=== PATIENT | female | born 1990 | race Caucasian/White ===

== ENCOUNTER 2016-07-26 19:57 | Emergency (ER) | payer BC ==
[2016-07-26 20:29] VITALS: BP 114/76
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
[2016-07-26] MEDS ORDERED: Cyclobenzaprine TAB* 10 MG PO ONE (21:17)
== END 2016-07-26 21:26 | disposition home or self-care (01) ==
LOC: UCCORT 19:57
DX: M54.5 Low back pain (principal); S43.401A Unspecified sprain of right shoulder joint, initial encounter; S40.011A Contusion of right shoulder, initial encounter; Y04.2XXA Assault by strike against or bumped into by another person, initial encounter; Y93.9 Activity, unspecified; Y92.9 Unspecified place or not applicable; Y07.50 Unspecified non-family member, perpetrator of maltreatment and neglect
CPT/HCPCS: 99212; A9270-GY; G0463

== ENCOUNTER 2017-04-14 16:25 | Emergency (ER) | payer BC ==
[2017-04-14 17:32] VITALS: BP 123/74
--- NOTE | 2017-04-14 17:53 | UC ---
Respiratory Complaint HPI - HPI Summary HPI Summary: 27 year old female with cough. sx x1 month--chest congestion, productive cough of yellow/green phlegm, sinus headache; no known fever, throat feels "tight" -current Albuterol MDI is . Had pneumonia 10 mo ago. Concerned for this today. PCP Dr Patel [ End ] - History of Current Complaint Chief Complaint: UCGeneralIllness Stated Complaint: COUGH,CHEST CONGESTION Time Seen by Provider: 04/14/17 17:50 Hx Obtained From: Patient, Family/[employer] Hx Last Menstrual Period: 03/22/17 Onset/Duration: Gradual Onset Timing: Constant Severity Initially: Moderate Severity Currently: Moderate Character: Cough: Productive Aggravating Factors: Allergens Alleviating Factors: Bronchodilator Associated Signs And Symptoms: Positive: Wheezing, Nasal Congestion - Allergies/Home Medications Allergies/Adverse Reactions: Allergies Allergy/AdvReac Type Severity Reaction Status Date / Time No Known Allergies Allergy Verified 04/14/17 17:10 PMH/Surg Hx/FS Hx/Imm Hx Previously Healthy: Yes Respiratory History: Asthma, Bronchitis, Pneumonia - Surgical History Surgical History: Yes Surgery Procedure, Year, and Place: tubes in ears, adenoidectomy-established pt of Dr. Sutherland - Family History Known Family History: Positive: None, Hypertension Negative: Cardiac Disease, Diabetes Family History: sister with asthma - Social History Occupation: Employed Full-time Lives: With Family Alcohol Use: None Substance Use Type: None Smoking Status (MU): Never Smoked Tobacco Have You Smoked in the Last Year: No - Immunization History Most Recent Influenza Vaccination: 01/2017 Hx Tetanus, Diphtheria Vaccination: Yes Vaccination Up to Date: Yes Review of Systems Constitutional: Fatigue Skin: Negative Eyes: Negative ENT: Negative Respiratory: Cough Cardiovascular: Negative Gastrointestinal: Negative Genitourinary: Negative Motor: Negative Neurovascular: Negative Musculoskeletal: Negative Neurological: Negative Psychological: Negative Is Patient Immunocompromised?: No All Other Systems Reviewed And Are Negative: Yes Physical Exam Triage Information Reviewed: Yes Appearance: Well-Appearing, No Pain Distress, Well-Nourished Vital Signs: Initial Vital Signs Temp 99 F 04/14/17 17:06 Pulse 77 04/14/17 17:06 Resp 16 04/14/17 17:06 BP 123/74 04/14/17 17:06 Pulse Ox 100 04/14/17 17:06 Vital Signs Reviewed: Yes Eye Exam: Normal ENT Exam: Normal Dental Exam: Normal Neck exam: Normal Neck: Positive: 1 Respiratory Exam: Normal Respiratory: Positive: Chest non-tender, No respiratory distress, No accessory muscle use, Wheezing - b/l expiratory. Negative: Respiratory distress, Rhonchi , Stridor Cardiovascular Exam: Normal Musculoskeletal Exam: Normal Neurological Exam: Normal Psychological Exam: Normal Skin Exam: Normal UC Diagnostic Evaluation - Laboratory O2 Sat by Pulse Oximetry: 100 Re-Evaluation - Re-Evaluation First Eval Change: Improved - after duoneb slightly Respiratory Course/Dx - Course Course Of Treatment: viral at this time - start steroids as per patient and mom this helped a lot last time. she is aware likely viral and antibiotics would not help. refill albuterol - Differential Dx/Diagnosis Differential Diagnosis/HQI/PQRI: Asthma, Bronchitis, Laryngitis, Lower Resp Infection, Sinusitis Provider Diagnoses: asthmatic bronchitis Discharge - Discharge Plan Condition: Good Disposition: HOME Prescriptions: Albuterol HFA INHALER* [Ventolin HFA Inhaler*] 1 - 2 puff INH Q4H PRN #1 mdi PRN Reason: wheeze Benzonatate [Benzonatate 200 MG] 200 mg PO TID #30 cap predniSONE TAB* [Deltasone TAB*] 10 mg PO DAILY #18 tab Patient Education Materials: Bronchospasm (ED) Referrals: Clayton Patel DO [Primary Care Provider] - 3 Days
[2017-04-14] MEDS ORDERED: Albuterol/Ipratropium NEB.SOL* Albuterol 2.5 MG/Ipratropium 0.5 MG 3 ML INH ONE (17:59)
--- NOTE | 2017-04-14 18:20 | RAD ---
INDICATION: Cough COMPARISON: March 08, 2016 TECHNIQUE: PA and lateral dual-energy views were obtained. FINDINGS: Bones/Soft Tissues: There are no acute bony findings. Cardiomediastinal: The cardiomediastinal silhouette is normal. Lungs: There are no infiltrates. Pleura: There are no pleural effusions. Other: None IMPRESSION: NEGATIVE EXAMINATION.
== END 2017-04-14 18:39 | disposition home or self-care (01) ==
LOC: UCCORT 16:25
DX: J45.909 Unspecified asthma, uncomplicated (principal)
CPT/HCPCS: 71020; 99212; A9270-GY; G0463

== ENCOUNTER 2017-07-08 15:07 | Emergency (ER) | payer BC ==
[2017-07-08 15:52] VITALS: BP 134/84
[2017-07-08] MEDS ORDERED: Ibuprofen TAB* 600 MG PO ONE (15:58)
--- NOTE | 2017-07-08 16:05 | UC ---
Throat Pain/Nasal Tarik HPI - HPI Summary HPI Summary: patient presents with ear pain, throat pain, sinus congestion body aches and chills. she is a elementary school registrar - History of Current Complaint Chief Complaint: UCGeneralIllness Stated Complaint: SORE THROAT/BILATERAL EAR PAIN Time Seen by Provider: 07/08/17 15:54 Hx Obtained From: Patient Hx Last Menstrual Period: 06/28/17 ?: No Onset/Duration: Sudden Onset, Lasting Days - 6 Severity: Mild - Allergies/Home Medications Allergies/Adverse Reactions: Allergies Allergy/AdvReac Type Severity Reaction Status Date / Time No Known Allergies Allergy Verified 07/08/17 15:53 Home Medications: Home Medications Sertraline* [Zoloft*] 150 mg PO DAILY 07/08/17 [History Confirmed 07/08/17] PMH/Surg Hx/FS Hx/Imm Hx Previously Healthy: Yes - Surgical History Surgical History: Yes Surgery Procedure, Year, and Place: tubes in ears, adenoidectomy-established pt of Dr. Sutherland - Family History Known Family History: Positive: None, Cardiac Disease, Diabetes Negative: Hypertension Family History: sister with asthma - Social History Alcohol Use: Rare Substance Use Type: None Smoking Status (MU): Never Smoked Tobacco Have You Smoked in the Last Year: No - Immunization History Most Recent Influenza Vaccination: 02/2014 Hx Tetanus, Diphtheria Vaccination: Yes Vaccination Up to Date: Yes Review of Systems Constitutional: Fever, Chills Skin: Negative Eyes: Eye Redness ENT: Sore Throat, Ear Ache, Nasal Discharge, Sinus Congestion Respiratory: Cough Cardiovascular: Negative Gastrointestinal: Negative Genitourinary: Negative Motor: Negative Neurovascular: Negative Musculoskeletal: Arthralgia, Myalgia Neurological: Headache Psychological: Negative Is Patient Immunocompromised?: No All Other Systems Reviewed And Are Negative: Yes Physical Exam Triage Information Reviewed: Yes Appearance: Well-Nourished, Ill-Appearing, Pain Distress Vital Signs: Initial Vital Signs Temp 98.7 F 07/08/17 15:49 Pulse 76 07/08/17 15:49 Resp 16 07/08/17 15:49 BP 134/84 07/08/17 15:49 Pulse Ox 100 07/08/17 15:49 Vital Signs Reviewed: Yes Eye Exam: Normal ENT: Positive: Pharyngeal erythema, TM bulging - right otitis media noted, TM dull, TM red, Tonsillar swelling, Tonsillar exudate Dental Exam: Normal Neck exam: Normal Neck: Positive: Supple, Nontender, Enlarged Nodes @ - right cervical Respiratory Exam: Normal Respiratory: Positive: Chest non-tender, No respiratory distress, No accessory muscle use, Wheezing, Inspiration Cardiovascular Exam: Normal Cardiovascular: Positive: RRR, No Murmur, Pulses Normal Abdominal Exam: Normal Abdomen Description: Positive: Nontender, No Organomegaly, Soft Bowel Sounds: Positive: Present Musculoskeletal Exam: Normal Musculoskeletal: Positive: Strength Intact, ROM Intact, No Edema Neurological Exam: Normal Neurological: Positive: Alert, Muscle Tone Normal Psychological Exam: Normal Skin Exam: Normal Throat Pain/Nasal Course/Dx - Course Course Of Treatment: hx obtained, exam performed ,meds reviewed, rapid flu and strep obtained, ibuprofen given - Differential Dx/Diagnosis Differential Diagnosis/HQI/PQRI: Otitis Media, Pharyngitis, Sinusitis Provider Diagnoses: right otitis media. fever and myalgia. viral syndrome Discharge - Discharge Plan Condition: Stable Disposition: HOME Prescriptions: Amoxicillin PO (*) [Amoxicillin 875 MG (*)] 875 mg PO BID #20 tab Patient Education Materials: Otitis Externa (ED) Referrals: Clayton Patel DO [Primary Care Provider] - Additional Instructions: 1. take the medication as prescribed. 2. Increase fluid intake and get plenty of rest 3. COntinue with motrin and tylenol for pain and fever. 4. your flu and strep were both negative
== END 2017-07-08 16:36 | disposition home or self-care (01) ==
LOC: UCCORT 15:07
DX: H66.91 Otitis media, unspecified, right ear (principal); R50.9 Fever, unspecified; M79.1 Myalgia; B34.9 Viral infection, unspecified
CPT/HCPCS: 87502; 87651; 99212; A9270-GY; G0463

== ENCOUNTER 2017-11-14 16:14 | Emergency (ER) | payer BC ==
[2017-11-14 17:52] VITALS: BP 125/75
--- NOTE | 2017-11-14 18:25 | UC ---
Skin Complaint HPI - HPI Summary HPI Summary: PATIENT REMOVED A TICK FROM HER LEFT MEDIAL THIGH THIS MORNING. STATES SHE WAS DIGGING TO GET THE WHOLE TICK OUT. OVER THE COURSE OF THE DAY THE SURROUNDING AREA OF REDNESS HAS EXPANDED AND SHE HAS PAIN AND ITCHING. IS UNSURE HOW LONG THE TICK WAS ATTACHED BUT MAY HAVE BEEN SOME DAYS. - History of Current Complaint Chief Complaint: UCSkin Time Seen by Provider: 11/14/17 17:59 Stated Complaint: TICK BITE Hx Obtained From: Patient Hx Last Menstrual Period: 11/01/17 Timing: Constant Onset Severity: Moderate Current Severity: Moderate Pain Intensity: 3 Pain Scale Used: 0-10 Numeric Location: Discrete - LEFT INNER THIGH Character: Pruritus, Pain, Redness Aggravating Factor(s): Touch Alleviating Factor(s): Nothing Associated Signs & Symptoms: Positive: Tenderness Related History: Insect Bite/Sting - Allergy/Home Medications Allergies/Adverse Reactions: Allergies Allergy/AdvReac Type Severity Reaction Status Date / Time No Known Allergies Allergy Verified 11/14/17 17:53 Review of Systems Constitutional: Negative Skin: Rash Respiratory: Negative Cardiovascular: Negative Gastrointestinal: Negative All Other Systems Reviewed And Are Negative: Yes PMH/Surg Hx/FS Hx/Imm Hx Respiratory History: Asthma Psychological History: Anxiety - Surgical History Surgical History: Yes Surgery Procedure, Year, and Place: tubes in ears, adenoidectomy - Family History Known Family History: Positive: Cardiac Disease, Hypertension, Diabetes Family History: sister with asthma - Social History Alcohol Use: Rare Substance Use Type: None Smoking Status (MU): Never Smoked Tobacco Have You Smoked in the Last Year: No - Immunization History Most Recent Influenza Vaccination: 02/2014 Hx Tetanus, Diphtheria Vaccination: Yes Vaccination Up to Date: Yes Physical Exam Triage Information Reviewed: Yes Appearance: Well-Appearing, No Pain Distress, Well-Nourished Vital Signs: Initial Vital Signs Temp 98.6 F 11/14/17 17:46 Pulse 71 11/14/17 17:46 Resp 14 11/14/17 17:46 BP 125/75 11/14/17 17:46 Pulse Ox 100 11/14/17 17:46 Vital Signs Reviewed: Yes Eyes: Positive: Conjunctiva Clear ENT: Positive: Hearing grossly normal Neck: Positive: Supple Respiratory: Positive: No respiratory distress, No accessory muscle use Cardiovascular: Positive: Pulses Normal Abdomen Description: Positive: Soft Musculoskeletal: Positive: No Edema Neurological: Positive: Alert Psychological: Positive: Age Appropriate Behavior Skin: Positive: Other - 9cm x 6cm area of erythema surrounding tick bite site. Mildly tender Course/Dx - Diagnoses Provider Diagnoses: 1. TICK BITE. 2. CELLULITIS Discharge - Sign-Out/Discharge Documenting (check all that apply): Discharge/Admit/Transfer - Discharge Plan Condition: Stable Disposition: HOME Prescriptions: Doxycycline Monohydrate [Doxycycline Monohydrate] 1 cap PO BID #20 cap Patient Education Materials: Cellulitis (ED), Tick Bite (ED) Referrals: Clayton Patel DO [Primary Care Provider] - If Needed Additional Instructions: IT LOOKS LIKE YOU HAVE DEVELOPED A CELLULITIS (SKIN INFECTION) STEMMING FROM THE TICK BITE SITE. WILL TREAT WITH DOXYCYCLINE WHICH WILL COVER FOR BOTH SKIN INFECTION AND LYME DISEASE. AVOID PROLONGED EXPOSURE TO THE SUN WHILE ON THIS MEDICATION. TAKE WITH FOOD AND CONSIDER PROBIOTICS TO PREVENT GI UPSET. FOLLOW -UP PP IF YOU'RE NOT IMPROVING EXPECTED. - Billing Disposition and Condition Condition: STABLE Disposition: HOME
== END 2017-11-14 18:36 | disposition home or self-care (01) ==
LOC: UCCORT 16:14
DX: S70.362A Insect bite (nonvenomous), left thigh, initial encounter (principal); L03.116 Cellulitis of left lower limb; W57.XXXA Bitten or stung by nonvenomous insect and other nonvenomous arthropods, initial encounter; Y92.9 Unspecified place or not applicable; J45.909 Unspecified asthma, uncomplicated; F41.9 Anxiety disorder, unspecified; Z82.49 Family history of ischemic heart disease and other diseases of the circulatory system; Z82.5 Family history of asthma and other chronic lower respiratory diseases
CPT/HCPCS: 99212; G0463

== ENCOUNTER 2017-12-22 09:58 | Emergency (ER) | payer BC ==
[2017-12-22 11:14] VITALS: BP 127/77
--- NOTE | 2017-12-22 11:39 | UC ---
Lower Extremity/Ankle HPI - HPI Summary HPI Summary: Patient accidentally rolled her left ankle while walking on an uneven surface this morning. She is Complaining of pain to the outside of the ankle. She's been using a relative's crutches, icing and took Tylenol plus Motrin prior to arrival. She denies any other injuries offers no other complaints. - History of Current Complaint Chief Complaint: UCLowerExtremity Stated Complaint: S/P FALL LEFT ANKLE INJURY Time Seen by Provider: 12/22/17 11:32 Hx Obtained From: Patient Hx Last Menstrual Period: 12/05/17 Onset/Duration: Sudden Onset Pain Intensity: 10 Aggravating Factor(s): Ambulation Alleviating Factor(s): Rest Able to Bear Weight: No - Risk Factors Gout Risk Factors: Negative - Allergies/Home Medications Allergies/Adverse Reactions: Allergies Allergy/AdvReac Type Severity Reaction Status Date / Time No Known Allergies Allergy Verified 12/22/17 11:12 Home Medications: Home Medications Acetaminophen [Tylenol Extra Strength] 1,000 mg PO Q8HR PRN 12/22/17 [History Confirmed 12/22/17] Bupropion XL* [Wellbutrin XL *] 150 mg PO DAILY 12/22/17 [History Confirmed 12/04] Naproxen Sodium [Aleve] 440 mg PO Q6HR PRN 12/22/17 [History Confirmed 12/22/17] PMH/Surg Hx/FS Hx/Imm Hx Psychological History: Anxiety - Surgical History Surgical History: Yes Surgery Procedure, Year, and Place: tubes in ears, adenoidectomy - Family History Known Family History: Positive: Cardiac Disease, Hypertension, Diabetes Family History: sister with asthma - Social History Lives: With Family Alcohol Use: None Substance Use Type: None Smoking Status (MU): Never Smoked Tobacco Have You Smoked in the Last Year: No - Immunization History Most Recent Influenza Vaccination: 02/2014 Hx Tetanus, Diphtheria Vaccination: Yes Vaccination Up to Date: Yes Review of Systems Constitutional: Negative Skin: Negative Eyes: Negative ENT: Negative Respiratory: Negative Cardiovascular: Negative Gastrointestinal: Negative Genitourinary: Negative Motor: Negative Neurovascular: Negative Musculoskeletal: Other: - Pain and swelling left ankle Neurological: Negative Psychological: Negative Is Patient Immunocompromised?: No All Other Systems Reviewed And Are Negative: Yes Physical Exam Triage Information Reviewed: Yes Appearance: Well-Appearing Vital Signs: Initial Vital Signs Temp 98.9 F 12/22/17 11:09 Pulse 63 12/22/17 11:09 Resp 17 12/22/17 11:09 BP 127/77 12/22/17 11:09 Pulse Ox 100 12/22/17 11:09 Vital Signs Reviewed: Yes Eyes: Positive: Conjunctiva Clear ENT: Positive: Normal ENT inspection Neck: Positive: Supple, Nontender Respiratory: Positive: Lungs clear, Normal breath sounds Cardiovascular: Positive: RRR, No Murmur Abdomen Description: Positive: Nontender, No Organomegaly, Soft Bowel Sounds: Positive: Present Musculoskeletal: Positive: Other: - Left lower extremity exam: Hip and knee without deformity or tenderness. Left lateral ankle has mild swelling. The lateral ankle is tender to palpation. Patient is able to plantar flex the foot. Foot is atraumatic and has full sensorivascular motor function. Neurological: Positive: Alert Psychological: Positive: Age Appropriate Behavior Skin Exam: Normal Diagnostics - Radiology No standard instances Xray Interpretation: No Acute Changes Radiology Interpretation Completed By: Radiologist - L ankle Lower Extremity Course/Dx - Course Course Of Treatment: no fx, dislocation or infection. will alejandra, splint and refer to orthopedics as pt is athletic - Differential Dx/Diagnosis Provider Diagnoses: Sprain L ankle Discharge - Sign-Out/Discharge Documenting (check all that apply): Discharge/Admit/Transfer - Discharge Plan Condition: Stable Disposition: HOME Patient Education Materials: Ankle Sprain (ED) Referrals: Clayton Patel DO [Primary Care Provider] - If Needed Usman Medrano MD [Medical Doctor] - Additional Instructions: USE ALEJANDRA AND YOUR CRUTCHES UNTIL CLEARED. - Billing Disposition and Condition Condition: STABLE Disposition: Home
--- NOTE | 2017-12-22 12:04 | RAD ---
INDICATION: Left ankle injury COMPARISON: None TECHNIQUE: AP, lateral, and oblique views were obtained. FINDINGS: There is no acute fracture or dislocation. There is lateral soft tissue swelling. IMPRESSION: LATERAL SOFT TISSUE SWELLING.
== END 2017-12-22 12:51 | disposition home or self-care (01) ==
LOC: UCCORT 09:58
DX: S93.402A Sprain of unspecified ligament of left ankle, initial encounter (principal); X50.0XXA Overexertion from strenuous movement or load, initial encounter; Y93.01 Activity, walking, marching and hiking; Y92.9 Unspecified place or not applicable
CPT/HCPCS: 99213; G0463

== ENCOUNTER 2018-02-12 13:11 | Day surgery (SDC) | payer BC ==
[~2018-02-12 13:11] MED LIST: Buffered Lidocaine 0.9% SYRIN* 5 ML/SYR SYRINGE INTRADERM ONE; Dexamethasone IV* 4 MG/ML 1 ML (4 MG) IV SLOW PU ONE; Famotidine IV* 10 MG/ML 2 ML (20 mg) IV ONE
[2018-02-12] MEDS ORDERED: Dexamethasone IV* 4 MG/ML 1 ML (4 MG) ONE (13:45)
[2018-02-12] MEDS ORDERED: Famotidine IV* 10 MG/ML 2 ML (20 mg) ONE (13:45)
[2018-02-12] MEDS ORDERED: ceFAZolin 2 GM PREMIX (*) 2 GM/50 ML BAG IVPB ONE (13:45)
[2018-02-12] MEDS ORDERED: Lidocaine 2% PF * 5 ML VIAL ONE (15:41)
[2018-02-12] MEDS ORDERED: Propofol* 10 MG/ML 20 ML BTL IV PUSH ONE (15:41)
[2018-02-12] MEDS ORDERED: Naloxone* 0.4 MG/ML 1 ML VIAL IV PRN (16:04)
[2018-02-12] MEDS ORDERED: HYDROcodone/ACETAMIN 5-325 MG* 1 TAB PO PRN (16:04)
[2018-02-12] MEDS ORDERED: DiMENhydriNATE IV* 50 MG/ML VIAL IV PUSH PRN (16:04)
[2018-02-12] MEDS ORDERED: Midazolam* 1 MG/ML 5 ML VIAL (5 MG) ONE (16:07)
[2018-02-12] MEDS ORDERED: fentaNYL* 50 MCG/ML 2 ML VIAL (100 MCG VIAL) ONE ×3 (16:07→18:49)
[2018-02-12] MEDS ORDERED: ROPIVACAINE 5 MG/ML 30 ML BTL (0.5%) ONE (16:17)
[2018-02-12] MEDS ORDERED: Ketorolac INJ* 30 MG/ML 1 ML VIAL ONE (16:41)
[2018-02-12] MEDS ORDERED: Ondansetron INJ* 2 MG/ML VIAL ONE (16:57)
[2018-02-12] MEDS ORDERED: oxyCODONE/Acetamin 5/325 MG* TAB ONE ×2 (17:53→18:49)
[2018-02-12] MEDS: fentaNYL* 50 MCG/ML 2 ML VIAL (100 MCG VIAL) IV PRN ×3 (17:55→18:50)
[2018-02-12] MEDS: oxyCODONE/Acetamin 5/325 MG* TAB PO PRN ×2 (17:56→19:27)
[2018-02-12 19:34] VITALS: BP 118/86
--- NOTE | 2018-02-13 04:15 | OP ---
DATE OF OPERATION: 02/12/18 - SDS DATE OF : 86 SURGEON: Willam Salazar MD PHOTOGRAPHIC PROCESS WORKER: AGAPITO Gallardo PRE-OP DIAGNOSIS: Subluxing left peroneal tendons with possible tear. POST-OP DIAGNOSIS: Subluxing left peroneal tendons with possible tear with split tear of the peroneus brevis noted. OPERATIVE PROCEDURE: Left ankle repair dislocation peroneal tendons. DESCRIPTION OF PROCEDURE: The patient was taken to the operating room where we opened up longitudinally over the distal fibula. We reflected the retinaculum away from the back side of the fibula and inspected both tendons carefully. There was about a 3 cm longitudinal split in the peroneus brevis directly behind the groove of the fibula. This was repaired with a running 3-0 Vicryl suture with buried sutures. We then inspected the groove of the fibula, which was very shallow. Remainder of the osteotomy along the posterolateral corner of the fibula longitudinally with a microsagittal saw, which allowed a bone tamp to drive the posterior cortex anteriorly, thus deepening the groove. Back to front, Guevara Bobby sutures were then passed with #1 Vicryl through the fibula pulling the retinaculum up tightly to the posterior groove. We then irrigated thoroughly closing with 2-0 Vicryl sutures, subcutaneous Monocryl for the skin and compression dressing plaster splint applied. [id number]/[facility] #: [id number] [facility]PITALJuliana
== END 2018-02-12 19:52 | disposition home or self-care (01) ==
LOC: OR 13:11
PROVIDERS: ATTEND Orthopaedic Surgery
DX: M67.874 Other specified disorders of tendon, left ankle and foot (principal); Z87.828 Personal history of other (healed) physical injury and trauma; J45.909 Unspecified asthma, uncomplicated; F41.9 Anxiety disorder, unspecified
CPT/HCPCS: 81025; A9270-GY; J0690; J1100; J1885; J2250; J2405; J2704; J2795; J3010

== ENCOUNTER 2018-05-06 11:16 | Emergency (ER) | payer BC ==
--- OUTSIDE RECORDS SUMMARY | 2018-05-06 13:10 | XMS REPORT ---
:1990 External Reference #:[id number] Author Organization [employer] Address [address] [place] [address] [place] [address] Phone [phone] Care Team Providers Name Role Phone Clayton Patel DO Primary Care Physician Unavailable Payers Type Date Identification Numbers Payment Subscriber Provider Health Maintenance Expires: Policy Number: [facility] Sena Haddad [facility] ([facility]) 02/17/2015 [id number] Group Number: [id number] [address] PayID: [id number] ELIU Mcclure [address] [employer] [address] [employer] Policy Number: [id number] BS Facets Sheila Mena PayID: [id number] [address] [address] Problems Date Description Provider Status Onset: 06/20/2013 Closed traumatic dislocation of Solomon Rich M.D. Active patellofemoral joint Onset: 03/19/2015 Other dislocation of right patella, Solomon Rich M.D. Active subsequent encounter Family History Date Family Member(s) Problem(s) Comments General Diabetes, Cancer Social History Type Date Description Comments Lives With Spouse Occupation Currently Working ETOH Use Never used alcohol Smoking Patient has never smoked Exercise Type/Frequency Does not exercise Allergies, Adverse Reactions, Alerts Date Description Reaction Status Severity Comments 06/20/2013 NKDA active Medications Medication Date Status Form Strength Qnty SIG Indications Ordering Provider Knee Scooter Active use as [id number] Willam Scott needed for Tom Salazar non-weight bearing S93.402D Oxycodone HCL 02/13/20 Hx Tablets 5mg 20tabs 1 tabs by Willam Salazar, 18 - mouth every M.D. 10/22/20 4-6 hours as 18 needed No Active 02/19/20 Hx Unknown Medications 15 - 02/13/20 18 Nucynta 09/15/19 Hx Tablets 50mg 60tabs Take 50mg po Solomon Young, 12 - q4 hours prn M.D. 01/19/20 pain 15 Percocet 08/24/19 Hx Tablets 5-325mg 60tabs 1-2 tabs po Solomon Young, 12 - q6h prn pain M.D. 01/19/20 15 Percocet 08/19/19 Hx Tablets 5-325mg 60tabs 1-2 tabs po Solomon Young, 12 - q4-6 prn pain M.D. 08/24/19 12 Percocet 08/05/19 Hx Tablets 5-325mg 60tabs take 1-2 tabs Solomon Young, 12 - po q6 hours M.D. 08/19/19 prn pain 12 Vital Signs Date Vital Result Comment 04/10/2018 Height 65 inches 5'5" Heart Rate 68 /min BP Systolic 124 mmHg BP Diastolic 80 mmHg Body Temperature 98.6 F Pain Level 0 03/15/2018 Height 65 inches 5'5" Weight 155.00 lb Heart Rate 78 /min BP Systolic 128 mmHg BP Diastolic 86 mmHg Respiratory Rate 18 /min Pain Level 0 BMI (Body Mass Index) 25.8 kg/m2 02/22/2018 Height 65 inches 5'5" Weight 155.00 lb BP Systolic 118 mmHg BP Diastolic 72 mmHg Respiratory Rate 16 /min Body Temperature 97.2 F Pain Level 0 BMI (Body Mass Index) 25.8 kg/m2 02/08/2018 Height 65 inches 5'5" Weight 155.00 lb Heart Rate 76 /min Respiratory Rate 16 /min Body Temperature 97.8 F Pain Level 4 BMI (Body Mass Index) 25.8 kg/m2 01/23/2018 Height 65 inches 5'5" Weight 155.00 lb Heart Rate 70 /min BP Systolic 106 mmHg BP Diastolic 70 mmHg Respiratory Rate 12 /min Body Temperature 99.0 F Pain Level 8 BMI (Body Mass Index) 25.8 kg/m2 01/16/2018 Height 65 inches 5'5" Weight 155.00 lb Heart Rate 76 /min BP Systolic 108 mmHg BP Diastolic 68 mmHg Respiratory Rate 12 /min Body Temperature 99.2 F Pain Level 8 BMI (Body Mass Index) 25.8 kg/m2 03/19/2015 Height 65 inches 5'5" Weight 140.00 lb Pain Level 3 BMI (Body Mass Index) 23.3 kg/m2 02/19/2015 Height 65 inches 5'5" Weight 140.00 lb Heart Rate 70 /min BP Systolic 118 mmHg BP Diastolic 80 mmHg BMI (Body Mass Index) 23.3 kg/m2 02/18/2015 Height 65 inches 5'5" Weight 140.00 lb Pain Level 8 BMI (Body Mass Index) 23.3 kg/m2 08/05/2011 Height 65 inches 5'5" Weight 130.00 lb Heart Rate 69 /min BP Systolic 116 mmHg BP Diastolic 78 mmHg BMI (Body Mass Index) 21.6 kg/m2 Results Description No Information Procedures Date CPT Code Description Status 02/22/2018 96510 Short Leg Cast Completed 02/12/2018 62380 Repair Dislocating Peroneal Tendon W/Fibular Osteotomy Completed 02/12/2018 93207 Repair Dislocating Peroneal Tendon W/Fibular Osteotomy Completed 02/12/2018 15246 Repair Flexor Tendon Leg Primary W/O Graft Completed 02/12/2018 22152 Repair Flexor Tendon Leg Primary W/O Graft Completed Encounters Type Date Location Provider CPT E/M Dx Office Visit 02/08/2018 [facility] Willam Salazar 08241 M76.72 9:45a Of C.Rufina Santos Office Visit 01/23/2018 [facility] Willam Salazar 60972 S93.402D 10:45a Of CMaciej Santos Office Visit 01/16/2018 [facility] Willam Salazar 34950 S93.402A 8:30a Of C.MChava Santos Office Visit 03/31/2015 [facility] Solomon Rich M.D. 31761 S83.094D 3:30p Of C.M.AMac Office Visit 03/19/2015 [facility] Solomon Rich M.D. 03077 S83.094D 3:00p Of C.M.AMac Office Visit 02/19/2015 [facility] Solomon Rich M.D. 50451 836.3 8:50a Of [facility] Office Visit 02/18/2015 [facility] Augusto Willett M.D. 65760 836.3 11:00a Of [facility] Office Visit 12/20/2011 [facility] Solomon Rich M.D. 46987 719.46 9:45a Of [facility] Office Visit 11/08/2011 [facility] Solomon Rich M.D. 16085 719.46 1:30p Of [facility] Office Visit 10/11/2011 [facility] Solomon Rich M.D. 30723 719.46 4:30p Of [facility] Office Visit 09/15/2011 [facility] Solomon Rich M.D. 37968 836.3 1:30p Of C.M.[facility]. Office Visit 08/11/2011 [facility] Solomon Rich M.D. 39551 836.3 1:30p Of C.M.[facility]. Office Visit 08/05/2011 [facility] Solomon Rich M.D. 26011 836.3 10:45a Of C.M.A. Plan of Care Future Appointment(s):05/11/2018 8:15 am - Willam Salazar M.D. at [facility]05/01/2018 8:15 am - Willam Salazar M.D. at [facility]04/10/2018 - Willam Salazar M.D.S93.402D Sprain of unspecified ligament of left ankle, subs encntrNew Therapy:Cardiac RehabPhysical TherapyFollow up:3-4 weeks
--- OUTSIDE RECORDS SUMMARY | 2018-05-06 13:10 | XMS REPORT ---
:1990 External Reference #:[id number] Author Organization [employer] Address [address] [place] [address] [place] [address] Phone [phone] Care Team Providers Name Role Phone Clayton Patel DO Primary Care Physician Unavailable Payers Type Date Identification Numbers Payment Subscriber Provider Health Maintenance Expires: Policy Number: [facility] Sena Haddad [facility] ([facility] [facility]) 02/17/2015 [id number] Group Number: [id number] [address] PayID: [id number] ELIU Mcclure [address] [employer] [address] Policy Number: [id number] BS Facets Sheila Mena PayID: [id number] [address] [place] [address] Problems Date Description Provider Status Onset: 06/20/2013 [...] Procedures Date CPT Code Description Status 02/22/2018 25025 Short Leg Cast Completed 02/12/2018 59763 Repair Dislocating Peroneal Tendon W/Fibular Osteotomy Completed 02/12/2018 88453 Repair Dislocating Peroneal Tendon W/Fibular Osteotomy Completed 02/12/2018 08374 Repair Flexor Tendon Leg Primary W/O Graft Completed 02/12/2018 97275 Repair Flexor Tendon Leg Primary W/O Graft Completed Encounters Type Date Location Provider CPT E/M Dx Office Visit 02/08/2018 [facility] Willam Salazar 60938 M76.72 9:45a Of C.Rufina Santos Office Visit 01/23/2018 [facility] Willam Salazar 36362 S93.402D 10:45a Of CMaciej Santos Office Visit 01/16/2018 [facility] Willam Salazar 81707 S93.402A 8:30a Of C.MChava Santos Office Visit 03/31/2015 [facility] Solomon Rich M.D. 45506 S83.094D 3:30p Of C.M.AMac Office Visit 03/19/2015 [facility] Solomon Rich M.D. 81925 S83.094D 3:00p Of C.M.AMac Office Visit 02/19/2015 [facility] Solomon Rich M.D. 42612 836.3 8:50a Of C.[facility]. Office Visit 02/18/2015 [facility] Augusto Willett M.D. 42129 836.3 11:00a Of [facility] Office Visit 12/20/2011 [facility] Solomon Rich M.D. 03756 719.46 9:45a Of [facility] Office Visit 11/08/2011 [facility] Solomon Rich M.D. 93592 719.46 1:30p Of [facility] Office Visit 10/11/2011 [facility] Solomon Rich M.D. 14689 719.46 4:30p Of [facility] Office Visit 09/15/2011 [facility] Solomon Rich M.D. 42433 836.3 1:30p Of C[facility]. Office Visit 08/11/2011 [facility] Solomon Rich M.D. 24695 836.3 1:30p Of C.M.[facility]. Office Visit 08/05/2011 [facility] Solomon Rich M.D. 61550 836.3 10:45a Of C.M.A. Plan of Care Future Appointment(s):05/01/2018 8:15 am - Willam Salazar M.D. at [facility]04/10/2018 - Willam Salazar M.D.S93.402D Sprain of unspecified ligament of left ankle, subs encntrNew Therapy:Cardiac RehabPhysical TherapyFollow up:3-4 weeks
[2018-05-06 13:32] VITALS: BP 124/76
--- NOTE | 2018-05-06 14:34 | UC ---
Respiratory Complaint HPI - HPI Summary HPI Summary: Patient has had increased cough, sob and fever for the past few days. chest hurts when she breaths - History of Current Complaint Chief Complaint: UCRespiratory Stated Complaint: COUGH Time Seen by Provider: 05/06/18 14:28 Hx Obtained From: Patient Hx Last Menstrual Period: 04/11 ?: No Onset/Duration: Sudden Onset, Lasting Days Timing: Constant Severity Initially: Mild Severity Currently: Mild Pain Intensity: 0 Character: Cough: Nonproductive Aggravating Factors: Exertion, Deep Breaths, Recumbent Position Alleviating Factors: Nothing Associated Signs And Symptoms: Positive: Dyspnea, Fever, Wheezing - Allergies/Home Medications Allergies/Adverse Reactions: Allergies Allergy/AdvReac Type Severity Reaction Status Date / Time No Known Allergies Allergy Verified 05/06/18 13:27 Home Medications: Home Medications guaiFENesin LIQ* [Robitussin*] 5 mg PO ONCE PRN 05/06/18 [History Confirmed ] PMH/Surg Hx/FS Hx/Imm Hx Previously Healthy: Yes - Surgical History Surgical History: Yes Surgery Procedure, Year, and Place: tubes in ears, adenoidectomy; [place] [facility] [place] Family History Known Family History: Positive: Cardiac Disease, Hypertension, Diabetes Family History: sister with asthma - Social History Alcohol Use: Rare Substance Use Type: None Smoking Status (MU): Never Smoked Tobacco Have You Smoked in the Last Year: No - Immunization History Most Recent Influenza Vaccination: 02/2014 Hx Tetanus, Diphtheria Vaccination: Yes Vaccination Up to Date: Yes Review of Systems All Other Systems Reviewed And Are Negative: Yes Constitutional: Positive: Fever, Fatigue Skin: Positive: Negative Eyes: Positive: Negative ENT: Positive: Negative Respiratory: Positive: Shortness Of Breath, Cough Cardiovascular: Positive: Negative Gastrointestinal: Positive: Negative Genitourinary: Positive: Negative Motor: Positive: Negative Neurovascular: Positive: Negative Musculoskeletal: Positive: Negative Neurological: Positive: Negative Psychological: Positive: Negative Is Patient Immunocompromised?: No Physical Exam Triage Information Reviewed: Yes Appearance: Well-Nourished, Ill-Appearing, Pain Distress Vital Signs: Initial Vital Signs Temp 99 F 05/06/18 13:28 Pulse 56 05/06/18 13:28 Resp 18 05/06/18 13:28 BP 124/76 05/06/18 13:28 Pulse Ox 100 05/06/18 13:28 Vital Signs Reviewed: Yes Eye Exam: Normal ENT Exam: Normal ENT: Positive: Pharyngeal erythema, TMs normal Dental Exam: Normal Neck exam: Normal Neck: Positive: Supple, Nontender, No Lymphadenopathy Respiratory: Positive: No respiratory distress, No accessory muscle use, Decreased breath sounds, Other: - center of chest tender with respiration Cardiovascular Exam: Normal Cardiovascular: Positive: RRR, No Murmur, Pulses Normal Abdominal Exam: Normal Abdomen Description: Positive: Nontender, No Organomegaly, Soft Bowel Sounds: Positive: Present Musculoskeletal Exam: Normal Musculoskeletal: Positive: Strength Intact, ROM Intact Neurological Exam: Normal Neurological: Positive: Alert, Muscle Tone Normal Psychological Exam: Normal Skin Exam: Normal UC Diagnostic Evaluation - Laboratory O2 Sat by Pulse Oximetry: 100 Respiratory Course/Dx - Course Course Of Treatment: hx obtained, exam performed, meds reviewed, chest xray obtained. positive results from neb treatment, treatd for SOB, atelectasis - Differential Dx/Diagnosis Differential Diagnosis/HQI/PQRI: Asthma, Bronchitis, Laryngitis, Lower Resp Infection Provider Diagnoses: atelectasis. sob. cough fever Discharge - Sign-Out/Discharge Documenting (check all that apply): Patient Departure All imaging exams completed and their final reports reviewed: Yes - Discharge Plan Condition: Stable Disposition: HOME Prescriptions: Albuterol HFA INHALER* [Ventolin HFA Inhaler*] 2 puff INH Q4H PRN #1 mdi PRN Reason: Sob/Wheezing Azithromyxin MILTON (NF) [Z-Milton (Zithromax) 250 mg tabs #6] 2 tab PO .TODAY, THEN 1 DAILY #6 tab Fluconazole [Diflucan 150 MG (NF)] 150 mg PO ONCE #1 tab predniSONE [Prednisone 20 MG TAB] 40 mg PO DAILY #14 tablet Patient Education Materials: Atelectasis (ED) Referrals: Clayton Patel DO [Primary Care Provider] - Additional Instructions: 1. take the medication as prescribed. 2. get plenty of rest and follow up as needed. - Billing Disposition and Condition Condition: STABLE Disposition: Home
[2018-05-06] MEDS ORDERED: Albuterol/Ipratropium NEB.SOL* Albuterol 2.5 MG/Ipratropium 0.5 MG 3 ML INH ONE (14:56)
== END 2018-05-06 15:26 | disposition home or self-care (01) ==
LOC: UCCORT 11:16
DX: J98.11 Atelectasis (principal); R06.02 Shortness of breath; R05 Cough; R50.9 Fever, unspecified
CPT/HCPCS: 71046; 99212; A9270-GY; G0463

== ENCOUNTER 2018-07-29 10:01 | Emergency (ER) | payer BC ==
[2018-07-29 11:45] VITALS: BP 112/71
[2018-07-29 12:09] LABS: Influenza A Molecular NEGATIVE (Negative); Influenza B Molecular NEGATIVE (Negative)
--- NOTE | 2018-07-29 12:17 | UC ---
Throat Pain/Nasal Tarik HPI - HPI Summary HPI Summary: 28 y/o female with no PMH, no current medications presents with 2 weeks of symptoms, had improved, but symptoms returned 2-3 days ago, c/o of sinus congestions, cough, fatigue, body aches. 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 ear pressure, no pain, b/l sinus pressure. - History of Current Complaint Chief Complaint: UCRespiratory Stated Complaint: COUGH/CONGESTION Time Seen by Provider: 07/29/18 11:50 Hx Obtained From: Patient Hx Last Menstrual Period: 07/10/18 ?: No Severity: Mild Pain Intensity: 0 Pain Scale Used: 0-10 Numeric Cough: Nonproductive Associated Signs & Symptoms: Positive: Sinus Discomfort, Nasal Discharge. Negative: Fever - Epiglottits Risk Factors Epiglottis Risk Factors: Negative - Allergies/Home Medications Allergies/Adverse Reactions: Allergies Allergy/AdvReac Type Severity Reaction Status Date / Time No Known Allergies Allergy Verified 07/29/18 11:38 Home Medications: Home Medications Acetaminophen [Acetaminophen Extra Strength] 1,000 mg PO Q6H PRN 07/29/18 [ History Confirmed 07/29/18] PMH/Surg Hx/FS Hx/Imm Hx Previously Healthy: Yes - Surgical History Surgical History: Yes Surgery Procedure, Year, and Place: tubes in ears, adenoidectomy; left ankle tendon repair 01[place] [facility] [place] - Family History Known Family History: Positive: Cardiac Disease, Hypertension, Diabetes Family History: sister with asthma - Social History Alcohol Use: Rare Substance Use Type: None Smoking Status (MU): Never Smoked Tobacco Have You Smoked in the Last Year: No - Immunization History Most Recent Influenza Vaccination: 02/2014 Hx Tetanus, Diphtheria Vaccination: Yes Vaccination Up to Date: Yes Review of Systems All Other Systems Reviewed And Are Negative: Yes Constitutional: Positive: Fatigue ENT: Positive: Sore Throat, Nasal Discharge, Sinus Congestion, Sinus Pain/ Tenderness. Negative: Ear Ache Respiratory: Positive: Cough Is Patient Immunocompromised?: No Physical Exam Triage Information Reviewed: Yes Appearance: No Pain Distress, Well-Nourished, Ill-Appearing - mild Vital Signs: Initial Vital Signs Temp 98 F 07/29/18 11:39 Pulse 69 07/29/18 11:39 Resp 16 07/29/18 11:39 BP 112/71 07/29/18 11:39 Pulse Ox 100 07/29/18 11:39 Vital Signs Reviewed: Yes Eyes: Positive: Conjunctiva Clear ENT: Positive: Pharynx normal, Nasal congestion, Nasal drainage, TMs normal - fluid fancy packer to TM b/l, no erythema, Sinus tenderness - b/l max, Uvula midline. Negative: Pharyngeal erythema, Tonsillar swelling, Tonsillar exudate, Muffled voice, Dental tenderness Neck: Positive: Supple, No Lymphadenopathy, Tenderness @ - minimal submand b/l. Negative: Enlarged Nodes @ Respiratory: Positive: Chest non-tender, Lungs clear, Normal breath sounds, No respiratory distress, No accessory muscle use. Negative: Respiratory distress, Crackles, Rhonchi, Stridor, Wheezing Cardiovascular: Positive: RRR, No Murmur Psychological Exam: Normal Skin Exam: Normal Throat Pain/Nasal Course/Dx - Course Course Of Treatment: rapi dflu neg, sinusitis, abx given with diflucan for yeast infection asociated with abx use, follow up with PCP within 3-5 days for re-eval. - Differential Dx/Diagnosis Differential Diagnosis/HQI/PQRI: Influenza, Laryngitis, Pharyngitis, Sinusitis, Tonsillitis, URI Provider Diagnosis: Sinusitis Discharge - Sign-Out/Discharge Documenting (check all that apply): Patient Departure All imaging exams completed and their final reports reviewed: No Studies - Discharge Plan Condition: Good Disposition: HOME Prescriptions: Azithromyxin MILTON (NF) [Z-Milton (Zithromax) 250 mg tabs #6] 2 tab PO .TODAY, THEN 1 DAILY #6 tab Fluconazole 150 MG TAB* [Diflucan 150 MG TAB*] 150 mg PO ONCE #1 tablet Patient Education Materials: Sinusitis (ED) Forms: *Work Release Referrals: Clayton Patel DO [Primary Care Provider] - Additional Instructions: - Increase fluid intake - Follow up with primary physician within 5-7 days for re-evaluation - Antibiotics as directed - Tylenol/ Motrin as needed for pain - Over the counter medication as needed for symptoms - Go to ER with shortness of breath, chest pain, increased pain, fever > 102. - Albuterol as needed for cough - Humidifier at night - Use back up control until starting next pack - Billing Disposition and Condition Condition: GOOD Disposition: Home
== END 2018-07-29 12:23 | disposition home or self-care (01) ==
LOC: UCCORT 10:01
DX: J32.9 Chronic sinusitis, unspecified (principal)
CPT/HCPCS: 99212; G0463

== ENCOUNTER 2018-09-15 14:55 | Emergency (ER) | payer BC ==
[2018-09-15 16:51] VITALS: BP 106/84
[2018-09-15] MEDS ORDERED: Ondansetron ODT TAB* 4 MG PO ONE (17:02)
--- NOTE | 2018-09-15 17:32 | UC ---
Abdominal Pain Female HPI - HPI Summary HPI Summary: P tc/o sudden onset of nausea, vomiting, diarrhea that began this morning. Pt c /o HAGAN, abdominal pain, HAGAN, and generalized malaise. - History of Current Complaint Chief Complaint: UCGI Stated Complaint: VOMITTING,DIARRHA,NAUSEA Time Seen by Provider: 09/15/18 16:57 Hx Obtained From: Patient Hx Last Menstrual Period: 09/12/18 ?: No Onset/Duration: Sudden Onset, Lasting Hours Timing: Constant Severity Initially: Moderate Severity Currently: Moderate Pain Intensity: 6 Location: Diffuse Radiates: No Character: Aching, Colicy, Cramping, Dull, Sharp Aggravating Factor(s): Food Associated Signs and Symptoms: Positive: Nausea, Vomiting, Diarrhea - Risk Factors Ectopic Risk Factor: Negative Ovarian Torsion Risk Factor: Reproductive Age Allergies/Adverse Reactions: Allergies Allergy/AdvReac Type Severity Reaction Status Date / Time No Known Allergies Allergy Verified 09/15/18 16:48 PMH/Surg Hx/FS Hx/Imm Hx Previously Healthy: Yes - Surgical History Surgical History: Yes Surgery Procedure, Year, and Place: tubes in ears, adenoidectomy; left ankle tendon repair 01/2018 [facility] [place] - Family History Known Family History: Positive: Cardiac Disease, Hypertension, Diabetes Family History: sister with asthma - Social History Occupation: Employed Full-time Lives: With Family Alcohol Use: Occasionally Substance Use Type: None Smoking Status (MU): Never Smoked Tobacco Have You Smoked in the Last Year: No - Immunization History Most Recent Influenza Vaccination: 02/2014 Hx Tetanus, Diphtheria Vaccination: Yes Vaccination Up to Date: Yes Review of Systems All Other Systems Reviewed And Are Negative: Yes Constitutional: Positive: Negative Skin: Positive: Negative Eyes: Positive: Negative ENT: Positive: Negative Respiratory: Positive: Negative Cardiovascular: Positive: Negative Gastrointestinal: Positive: Abdominal Pain, Vomiting, Diarrhea, Nausea Genitourinary: Positive: Negative Motor: Positive: Negative Neurovascular: Positive: Negative Musculoskeletal: Positive: Myalgia Neurological: Positive: Headache Psychological: Positive: Negative Is Patient Immunocompromised?: No Physical Exam Triage Information Reviewed: Yes Appearance: Ill-Appearing Vital Signs: Initial Vital Signs Temp 98.4 F 09/15/18 16:49 Pulse 115 09/15/18 16:49 Resp 16 09/15/18 16:49 BP 106/84 09/15/18 16:49 Pulse Ox 100 09/15/18 16:49 Vital Signs Reviewed: Yes Eye Exam: Normal ENT Exam: Normal Dental Exam: Normal Neck exam: Normal Respiratory Exam: Normal Cardiovascular Exam: Normal Abdominal Exam: Other - generalized tenderness Musculoskeletal Exam: Normal Neurological Exam: Normal Psychological Exam: Normal Skin Exam: Normal Abd Pain Female Course/Dx - Differential Dx/Diagnosis Differential Diagnosis: Other - gastroenteritis Provider Diagnosis: Gastroenteritis Discharge - Sign-Out/Discharge Documenting (check all that apply): Patient Departure All imaging exams completed and their final reports reviewed: No Studies - Discharge Plan Condition: Stable Disposition: HOME Patient Education Materials: Gastroenteritis (ED) Referrals: Clayton Patel DO [Primary Care Provider] - If Needed - Billing Disposition and Condition Condition: STABLE Disposition: Home
== END 2018-09-15 17:49 | disposition home or self-care (01) ==
LOC: UCCORT 14:55
DX: K52.9 Noninfective gastroenteritis and colitis, unspecified (principal)
CPT/HCPCS: 99212; A9270-GY; G0463

== ENCOUNTER 2019-06-17 09:03 | Emergency (ER) | payer BC ==
--- OUTSIDE RECORDS SUMMARY | 2019-06-17 09:28 | XMS REPORT | Continuity of Care Document ---
:1990 External Reference #:[id number] Author Name Melissa De Los Santos PA Address [address] [place] [address] Problems Description No Information Available Social History Type Date Description Comments Sex Unknown ETOH Use Rarely consumes alcohol Tobacco Use Start: Unknown Patient has never smoked Recreational Drug Use Denies Drug Use Allergies, Adverse Reactions, Alerts Description No Known Drug Allergies Medications Active Medications SIG Qnty Indications Ordering Provider Date Omeprazole 1 by mouth daily 30caps Clayton Patel, 05/15/[address] Bupropion 1 by mouth every 30tabs Clayton Patel, 05/15/2019 Hydrochloride ER (XL) day DO 150mg Tablets ER 24HR Alprazolam 1 tablet by 21tabs F43.0 Clayton Patel, 05/15/2019 0.5mg Tablets mouth three DO times daily as needed anxiety Loestrin 1.5/30-21 Sole Conditioner Clayton Patel, 03/04/2014 1.5/30 DO Tablets History Medications Fluconazole 1 by mouth x 1, 2tabs Clayton Patel, DO 04/22/2019 - 150mg Tablets then repeat again 04/27/2019 5 days later if needed. Immunizations CPT Code Status Date Vaccine Lot # [id number] Given 02/14/2019 Flu Vaccine NOS [id number] Given 08/09/2018 Tdap (Adacel) Ages 7 And Above Only [id number] Given 02/12/2018 Influenza Vac, Quadrivalent, Split, 0.5mL Dosage, Im Use Vital Signs Date Vital Result Comment 05/15/2019 9:40am Weight 166.00 lb Heart Rate 64 /min BP Systolic 118 mmHg BP Diastolic 80 mmHg Respiratory Rate 16 /min Height 64.75 inches 5'4.75" (06/2016) BMI (Body Mass Index) 27.8 kg/m2 08/09/2018 2:11pm Weight 156.00 lb Heart Rate 60 /min BP Systolic 122 mmHg BP Diastolic 84 mmHg Respiratory Rate 17 /min Height 64.75 inches 5'4.75" (06/2016) BMI (Body Mass Index) 26.2 kg/m2 Results Description No Information Available Procedures Description No Information Available Medical Devices Description No Information Available Encounters Description No Information Available Assessments Date Code Description Provider 05/15/2019 F43.0 Acute stress reaction Melissa De Los Santos PA 05/15/2019 Z68.27 Body mass index (BMI) 27.0-27.9, adult Melissa De Los Santos PA Plan of Treatment Future Appointment(s):06/10/2019 9:00 am - Melissa De Los Santos PA at [facility]2019 3:30 pm - Clayton Patel DO at [facility]05/15/2019 - Melissa De Los Santos PAF43.0 Acute stress reactionNew Medication:Alprazolam 0.5 mg - 1 tablet by mouth three times daily as needed anxietyComments:Will resume wellbutrinWill give xanax to use prn anxiety attacksWork on self careFollow up:4 weeks 30'Z68.27 Body mass index (BMI) 27.0-27.9, adult Functional Status Description No Information Available Mental Status Description No Information Available Referrals Description No Information Available
--- OUTSIDE RECORDS SUMMARY | 2019-06-17 09:28 | XMS REPORT | Continuity of Care Document ---
:1990 External Reference #:[id number] Author Name Melissa De Los Santos PA Address [address] [place] [address] Problems Description No Information Available Social History Type Date Description Comments Sex Unknown ETOH Use Rarely consumes alcohol Tobacco Use Start: Unknown Patient has never smoked Recreational Drug Use Denies Drug Use Allergies, Adverse Reactions, Alerts Description No Known Drug Allergies Medications Active Medications SIG Qnty Indications Ordering Provider Date Bupropion Hydrochloride 1 by mouth 30tabs Clayton Patel, 06/10/2019 ER (XL) every day DO 300mg Tablets ER 24HR Omeprazole 1 by mouth 30caps Clayton Patel, 05/15/[address] daily DO Alprazolam 1 tablet by 60tabs F43.0 Clayton Patel, 05/15/2019 0.5mg Tablets mouth three DO times daily as needed anxiety. Fill 05/29/19 Loestrin 1.5/30-21 Wholesaler Clayton Patel, 03/04/2014 1.5/30 DO Tablets History Medications Bupropion Hydrochloride 1 by mouth every 30tabs Clayton Patel DO 2018 - ER (XL) day 06/10/2019 300mg Tablets ER 24HR Fluconazole 1 by mouth x 1, 2tabs Clayton Patel DO 04/22/2019 - 150mg Tablets then repeat 04/27/2019 again 5 days later if needed. Immunizations CPT Code Status Date Vaccine Lot # [id number] Given 02/14/2019 Flu Vaccine NOS [id number] Given 08/09/2018 Tdap (Adacel) Ages 7 And Above Only [id number] Given 02/12/2018 Influenza Vac, Quadrivalent, Split, 0.5mL Dosage, Im Use Vital Signs Date Vital Result Comment 06/10/2019 8:53am Weight 156.00 lb Heart Rate 76 /min BP Systolic 120 mmHg BP Diastolic 74 mmHg Respiratory Rate 16 /min Height 64.75 inches 5'4.75" (06/2016) BMI (Body Mass Index) 26.2 kg/m2 05/15/2019 9:40am Weight 166.00 lb Heart Rate 64 /min BP Systolic 118 mmHg BP Diastolic 80 mmHg Respiratory Rate 16 /min Height 64.75 inches 5'4.75" (06/2016) BMI (Body Mass Index) 27.8 kg/m2 Results Description No Information Available Procedures Description No Information Available Medical Devices Description No Information Available Encounters Type Date Location Provider Dx Diagnosis Office Visit 05/15/2019 [facility] Melissa De Los Santos PA F43.0 Acute stress reaction 9:30a Z13.31 Encounter for screening for depression Z68.27 Body mass index (BMI) 27.0-27.9, adult Assessments Date Code Description Provider 06/10/2019 F43.0 Acute stress reaction Melissa De Los Santos PA 06/10/2019 Z68.26 Body mass index (BMI) 26.0-26.9, adult Melissa De Los Santos PA 05/15/2019 F43.0 Acute stress reaction Melissa De Los Santos PA 05/15/2019 Z13.31 Encounter for screening for depression Melissa De Los Santos PA 05/15/2019 Z68.27 Body mass index (BMI) 27.0-27.9, adult Melissa De Los Santos PA Plan of Treatment Future Appointment(s):08/14/2019 3:30 pm - Clayton Patel, at [facility]06/10/2019 - Melissa De Los Santos, PAF43.0 Acute stress reactionComments:Improving with medicationWill increase bupropion to 300 mgContinue alprazolam prnFollow up:As [id number] Body mass index (BMI) 26.0-26.9, adultAllNew Medication: Bupropion Hydrochloride ER (XL) 300 mg - 1 by mouth every day Functional Status Description No Information Available Mental Status Description No Information Available Referrals Description No Information Available
[2019-06-17 09:31] VITALS: BP 126/81
--- NOTE | 2019-06-17 09:44 | UC ---
Eye Complaint HPI - HPI Summary HPI Summary: Pt presents with c/o bilateral eye pain and green discharge X 1 week. Pt also c /o HAGAN X 1 week. - History of Current Complaint Chief Complaint: UCGeneralIllness Stated Complaint: SINUS, BI LAT EYE CONCERN Time Seen by Provider: 06/17/19 09:33 Hx Obtained From: Patient Hx Last Menstrual Period: 09/12/18 ?: No Onset/Duration: Sudden Onset, Lasting Days - 7, Still Present Timing: Constant Severity Initially: Mild Severity Currently: Moderate Pain Intensity: 4 Character: Dull Associated Signs And Symptoms: Positive: Drainage (Purulent), Swelling - Risk Factors Penetrating Injury Risk Factor: Negative Globe Rupture Risk Factors: Negative Acute Glaucoma Risk Factors: Negative Optic Artery Occlusion Risk Factors: Negative - Allergies/Home Medications Allergies/Adverse Reactions: Allergies Allergy/AdvReac Type Severity Reaction Status Date / Time No Known Allergies Allergy Verified 06/17/19 09:32 Home Medications: Home Medications buPROPion TAB* [Wellbutrin TAB*] 150 mg PO EVERY OTHER DAY 06/17/19 [History Confirmed 06/17/19] PMH/Surg Hx/FS Hx/Imm Hx Previously Healthy: Yes - Surgical History Surgical History: Yes Surgery Procedure, Year, and Place: tubes in ears, adenoidectomy; left ankle tendon repair 01/2018 [facility] - Family History Known Family History: Positive: Cardiac Disease, Hypertension, Diabetes Family History: sister with asthma - Social History Occupation: Employed Full-time Lives: With Family Alcohol Use: Rare Substance Use Type: None Smoking Status (MU): Never Smoked Tobacco Have You Smoked in the Last Year: No - Immunization History Most Recent Influenza Vaccination: 02/2014 Hx Tetanus, Diphtheria Vaccination: Yes Vaccination Up to Date: Yes Review of Systems All Other Systems Reviewed And Are Negative: Yes Constitutional: Positive: Negative Skin: Positive: Negative Eyes: Positive: Drainage, Eye Redness ENT: Positive: Negative Respiratory: Positive: Negative Cardiovascular: Positive: Negative Gastrointestinal: Positive: Negative Genitourinary: Positive: Negative Motor: Positive: Negative Neurovascular: Positive: Negative Musculoskeletal: Positive: Negative Neurological: Positive: Headache Psychological: Positive: Negative Is Patient Immunocompromised?: No Physical Exam Triage Information Reviewed: Yes Appearance: Ill-Appearing Vital Signs: Initial Vital Signs Temp 98.9 F 06/17/19 09:28 Pulse 66 06/17/19 09:28 Resp 18 06/17/19 09:28 BP 126/81 06/17/19 09:28 Pulse Ox 100 06/17/19 09:28 Vital Signs Reviewed: Yes Eyes: Positive: Conjunctiva Inflamed, Discharge - green ENT Exam: Normal Dental Exam: Normal Neck exam: Normal Respiratory Exam: Normal Cardiovascular Exam: Normal Musculoskeletal Exam: Normal Neurological Exam: Normal Psychological Exam: Normal Skin Exam: Normal Eye Complaint Course/Dx - Differential Dx/Diagnosis Differential Diagnosis/HQI/PQRI: Conjunctivitis, Other - sinusitis Provider Diagnosis: Conjunctivitis, Headache Discharge ED - Sign-Out/Discharge Documenting (check all that apply): Patient Departure All imaging exams completed and their final reports reviewed: No Studies - Discharge Plan Condition: Stable Disposition: HOME Prescriptions: Polymyx/Trimethoprim OPTH* [Polytrim OPHTH*] 2 drop BOTH EYES Q6H 7 Days #1 btl Patient Education Materials: Acute Headache (ED), Conjunctivitis (ED) Referrals: Clayton Patel DO [Primary Care Provider] - If Needed - Billing Disposition and Condition Condition: STABLE Disposition: Home
== END 2019-06-17 09:53 | disposition home or self-care (01) ==
LOC: UCCORT 09:03
DX: H10.33 Unspecified acute conjunctivitis, bilateral (principal); R51 Headache
CPT/HCPCS: 99212; G0463

== ENCOUNTER 2019-06-22 09:11 | Emergency (ER) | payer BC ==
[2019-06-22 09:49] VITALS: BP 135/85
--- NOTE | 2019-06-22 09:58 | UC ---
Eye Complaint HPI - HPI Summary HPI Summary: 29-year-old female who was treated for a right conjunctivitis with Sulfatrim and since then she has developed redness in the left eye with yellow purulent drainage and has continued to use his Sulfatrim without improvement. She complains of a mild headache however this is not the worst headache she's ever had. She has a history of migraines. She states the eye infection started first and then the headache more around the eyes. - History of Current Complaint Chief Complaint: UCEye Stated Complaint: RECHECK EYES Time Seen by Provider: 06/22/19 09:40 Hx Obtained From: Patient Hx Last Menstrual Period: 06/12/19 ?: No Onset/Duration: Gradual Onset Timing: Constant Severity Initially: Mild Severity Currently: Moderate Pain Intensity: 5 Location of Injury: Other - No known injury. Character: Dull - Mildly dull headache. Aggravating Factor(s): Contact Lens - Patient has not been wearing her contact lenses since she's had the conjunctivitis. She does wear them daily, takes amount at night and then reinserts them and uses the same contact lenses for one month before discarding. Alleviating Factor(s): Nothing Associated Signs And Symptoms: Positive: Drainage (Purulent) - Allergies/Home Medications Allergies/Adverse Reactions: Allergies Allergy/AdvReac Type Severity Reaction Status Date / Time No Known Allergies Allergy Verified 06/22/19 09:45 PMH/Surg Hx/FS Hx/Imm Hx Previously Healthy: Yes - Surgical History Surgical History: Yes Surgery Procedure, Year, and Place: tubes in ears, adenoidectomy; left ankle tendon repair 01/2018 [facility] - Family History Known Family History: Positive: Cardiac Disease, Hypertension, Diabetes Family History: sister with asthma - Social History Alcohol Use: Rare Substance Use Type: None Smoking Status (MU): Never Smoked Tobacco Have You Smoked in the Last Year: No - Immunization History Most Recent Influenza Vaccination: 02/2014 Hx Tetanus, Diphtheria Vaccination: Yes Vaccination Up to Date: Yes Review of Systems All Other Systems Reviewed And Are Negative: Yes Eyes: Positive: Drainage, Eye Redness - Both eyes continue to be injected with yellow purulent drainage. Neurological: Positive: Headache - Mild dull headache. Patient denies it is the worst headache of her life. Is Patient Immunocompromised?: No Physical Exam Triage Information Reviewed: Yes Appearance: Well-Appearing, No Pain Distress, Well-Nourished Vital Signs: Initial Vital Signs Temp 98.5 F 06/22/19 09:40 Pulse 77 06/22/19 09:40 Resp 14 06/22/19 09:40 BP 135/85 06/22/19 09:40 Pulse Ox 100 06/22/19 09:40 Vital Signs Reviewed: Yes Eyes: Positive: Conjunctiva Inflamed - Sclera and conjunctiva injected bilaterally., Discharge - Yellow purulent drainage left eye. ENT: Positive: Pharynx normal, TMs normal, Uvula midline Neck: Positive: Supple, Nontender, No Lymphadenopathy Respiratory: Positive: Lungs clear, Normal breath sounds, No respiratory distress, No accessory muscle use Cardiovascular: Positive: RRR, No Murmur, Pulses Normal, Brisk Capillary Refill Eye Complaint Course/Dx - Course Course Of Treatment: The patient has been experiencing conjunctivitis for approximately 10 days and has been using the Sulfatrim for one week. We discussed the possibility she may be having a reaction to the Sulfatrim so she is to stop that and start tobramycin with a definite follow-up on Monday with an capacity manager either in [place] or in [place] however she has seen Dr. Daniels in [place] for her contact lenses and prefers to follow-up with her. - Differential Dx/Diagnosis Provider Diagnosis: Bilateral conjunctivitis Discharge ED - Sign-Out/Discharge Documenting (check all that apply): Patient Departure All imaging exams completed and their final reports reviewed: No Studies - Discharge Plan Condition: Good Disposition: HOME Prescriptions: Tobramycin 0.3% OPHTH.ERIN* 1 drop BOTH EYES Q4H 7 Days #1 btl Patient Education Materials: Conjunctivitis (ED) Referrals: Clayton Patel DO [Primary Care Provider] - Louis Zepeda OD, [place] [Medical Doctor] - Additional Instructions: Good handwashing, follow-up with Dr. Daniels on Monday if no improvement. Stop using the Sulfatrim drops. - Billing Disposition and Condition Condition: GOOD Disposition: Home
== END 2019-06-22 10:09 | disposition home or self-care (01) ==
LOC: UCCORT 09:11
DX: H10.9 Unspecified conjunctivitis (principal)
CPT/HCPCS: 99212; G0463

== ENCOUNTER 2019-07-08 16:26 | Emergency (ER) | payer BC ==
[2019-07-08 17:41] VITALS: BP 125/81
--- NOTE | 2019-07-08 17:48 | UC ---
Throat Pain/Nasal Tarik HPI - HPI Summary HPI Summary: 29-year-old female who is had a sore throat for approximately 3 weeks which is worse over the past 2 days. She has been exposed to coworker with strep. She also complains of a left earache over the past few days. She denies any fever or chills. She denies any other cold symptoms. - History of Current Complaint Chief Complaint: UCRespiratory Stated Complaint: SORE THROAT, LEFT EAR PAIN Time Seen by Provider: 07/08/19 17:37 Hx Obtained From: Patient Hx Last Menstrual Period: 06/19/19 ?: No Onset/Duration: Gradual Onset Severity: Mild Pain Intensity: 6 Cough: None - Allergies/Home Medications Allergies/Adverse Reactions: Allergies Allergy/AdvReac Type Severity Reaction Status Date / Time No Known Allergies Allergy Verified 07/08/19 17:40 Home Medications: Home Medications Norethindrone-E.estradiol-Iron [Junel Fe 24 Tablet] 1 tab DAILY 07/08/19 [ History Confirmed 07/08/19] PMH/Surg Hx/FS Hx/Imm Hx Previously Healthy: Yes Respiratory History: Asthma Psychological History: Anxiety - Surgical History Surgical History: Yes Surgery Procedure, Year, and Place: tubes in ears, adenoidectomy; left ankle tendon repair 01/2018 [facility] - Family History Known Family History: Positive: Cardiac Disease, Hypertension, Diabetes Family History: sister with asthma - Social History Alcohol Use: Rare Substance Use Type: None Smoking Status (MU): Never Smoked Tobacco Have You Smoked in the Last Year: No - Immunization History Most Recent Influenza Vaccination: 02/2014 Hx Tetanus, Diphtheria Vaccination: Yes Vaccination Up to Date: Yes Review of Systems All Other Systems Reviewed And Are Negative: Yes ENT: Positive: Sore Throat - Sore throat for 3 weeks., Ear Ache - Left Earache over the past couple days Is Patient Immunocompromised?: No Physical Exam Triage Information Reviewed: Yes Appearance: Well-Appearing, No Pain Distress, Well-Nourished Vital Signs: Initial Vital Signs Temp 98.3 F 07/08/19 17:38 Pulse 75 07/08/19 17:38 Resp 16 07/08/19 17:38 BP 125/81 07/08/19 17:38 Pulse Ox 100 07/08/19 17:38 Vital Signs Reviewed: Yes Eyes: Positive: Conjunctiva Clear ENT: Positive: Pharynx normal, TMs normal, Uvula midline Neck: Positive: Supple, Nontender, No Lymphadenopathy Respiratory: Positive: Lungs clear, Normal breath sounds, No respiratory distress, No accessory muscle use Cardiovascular: Positive: RRR, No Murmur, Pulses Normal, Brisk Capillary Refill Musculoskeletal Exam: Normal Neurological Exam: Normal Psychological Exam: Normal Skin Exam: Normal Throat Pain/Nasal Course/Dx - Course Course Of Treatment: Rapid strep test:negative - Differential Dx/Diagnosis Provider Diagnosis: Pharyngitis Discharge ED - Sign-Out/Discharge Documenting (check all that apply): Patient Departure All imaging exams completed and their final reports reviewed: No Studies - Discharge Plan Condition: Good Disposition: HOME Patient Education Materials: Pharyngitis (ED) Referrals: Clayton Patel DO [Primary Care Provider] - Additional Instructions: Warm, saltwater gargles, throat lozenges, follow-up with your primary care provider if no improvement in 3 or 4 days. - Billing Disposition and Condition Condition: GOOD Disposition: Home
== END 2019-07-08 18:03 | disposition home or self-care (01) ==
LOC: UCCORT 16:26
DX: J02.9 Acute pharyngitis, unspecified (principal); H92.02 Otalgia, left ear; J45.909 Unspecified asthma, uncomplicated
CPT/HCPCS: 87651; 99211; G0463